=== PATIENT | male | born 1965 | race Caucasian/White ===

== ENCOUNTER → 2018-08-29 | Outpatient (CLI) | payer BC ==
--- NOTE | 2018-08-29 18:29 | MR ---
EXAMINATION TYPE: MR knee RT wo con DATE OF EXAM: 08/29/2018 COMPARISON: None HISTORY: RIGHT KNEE PAIN TECHNIQUE: Multiplanar, multisequence imaging of the right knee is performed without IV contrast. FINDINGS: MEDIAL MENISCUS: There is increased signal within the posterior meniscus extending towards the midpor tion. Milder increased signals within the anterior portion of the medial meniscus. Communication with an articular surface is not evident. Findings are compatible with internal derangement or degenerati ve change. LATERAL MENISCUS: Signal through the lateral meniscus appears normal CRUCIATE LIGAMENTS: The anterior and posterior cruciate ligaments are intact and unremarkable. COLLATERAL LIGAMENTS: Lateral collateral ligament appears intact. Medial collateral ligament has some increased signal adjacent. Some mild strain should be considered. EXTENSOR MECHANISM: Visualized quadriceps and patellar tendons are intact. EFFUSION: Small joint effusion is present. POPLITEAL CYST: No popliteal/neal cyst. TRICOMPARTMENT SPACES: Preserved CARTILAGE: Some minimal thinning of the medial femoral condylar articular cartilage may be present. BONE MARROW SIGNAL: No focal abnormal marrow signal is appreciated. OTHER: No additional significant abnormality is appreciated. IMPRESSION: 1. Internal derangement or degenerative change posterior horn medial meniscus to mild degree anterior horn medial meniscus. 2. Moderate joint effusion. 3. Suggestion of some mild medial collateral ligament strain. 4. Mild osteoarthritic degenerative change medial compartment right knee.
== END | disposition home or self-care (01) ==
LOC: RADMRIMAIN 13:09
PROVIDERS: ATTEND Orthopaedic Surgery
DX: M17.11 Unilateral primary osteoarthritis, right knee (principal)

== ENCOUNTER → 2022-01-04 | Outpatient (CLI) | payer BC ==
--- NOTE | 2022-01-04 19:03 | XR ---
EXAMINATION TYPE: XR KUB DATE OF EXAM: 01/04/2022 6:34 PM INDICATION: Patient age:Male; 56 years old; Reason for study: N20.0; pain COMPARISON: None. TECHNIQUE: One radiographic view of the abdomen was obtained. FINDINGS: Right renal density projecting over the renal sinus measuring 14 mm. The bowel gas pattern is nonspecific without dilated loops of small or large bowel. There is no evidence for organomegaly o r pneumoperitoneum. The osseous structures are intact. Fecal material and gas are demonstrated throu ghout the colon and rectum. IMPRESSION: 1. Calcific density projecting over the right kidney renal sinus measuring up to 14 mm which could r epresent a renal pelvis calculus.. 2. Nonspecific bowel gas pattern without radiographic evidence for acute process.
== END | disposition home or self-care (01) ==
LOC: RADXRMAIN 18:17
PROVIDERS: ATTEND Internal Medicine
DX: N28.89 Other specified disorders of kidney and ureter (principal)
CPT/HCPCS: 74018

== ENCOUNTER → 2022-01-24 | Outpatient (CLI) | payer BC ==
[2022-01-24 11:43] LABS: Basophils # (A) 0.1 k/uL (0-0.2); Basophils % (A) 1 %; Eosinophils # (A) 0.2 k/uL (0-0.7); Eosinophils % (A) 3 %; HCT 49.7 % (39.0-53.0); HGB 15.9 gm/dL (13.0-17.5); Lymphocytes % (A) 28 %; MCHC 31.9 g/dL (31.0-37.0); MCV 84.6 fL (80.0-100.0); Mean Platelet Volume 8.6; Monocytes # (A) 0.5 k/uL (0-1.0); Monocytes % (A) 7 %; Neutrophils # (A) 4.2 k/uL (1.3-7.7); Neutrophils % (A) 59 %; Platelet Count 284 k/uL (150-450); RBC 5.87 m/uL (4.30-5.90); RDW 13.1 % (11.5-15.5); WBC 7.1 k/uL (3.8-10.6)
[2022-01-24 11:51] LABS: African American GFR (CKD) 86 (>60 ml/min/1.73 sqM); Anion Gap 7 mmol/L; Blood Urea Nitrogen 13 mg/dL (9-20); Calcium 9.6 mg/dL (8.4-10.2); Carbon Dioxide 31 mmol/L (22-30); Chloride 101 mmol/L (98-107); Glucose 89 mg/dL (74-99); Non-African American GFR(CKD) 74 (>60 ml/min/1.73 sqM); Potassium 4.4 mmol/L (3.5-5.1); Sodium 139 mmol/L (137-145)
== END | disposition home or self-care (01) ==
LOC: LABPAT 10:25
PROVIDERS: ATTEND Urology
DX: Z01.812 Encounter for preprocedural laboratory examination (principal); N20.0 Calculus of kidney
CPT/HCPCS: 80048; 85025

== ENCOUNTER 2022-01-25 14:07 | Day surgery (SDC) | payer BC ==
[2022-01-24 11:11] VITALS: BMI 32.8
--- NOTE | 2022-01-24 14:55 | P.GSHP ---
History of Present Illness H&P Date: 01/24/22 Chief Complaint: Right renal colic The patient is a 56-year-old white male with no prior history of urolithiasis. For the past 2 months, he has experienced right flank pain radiating to the right groin. Computed tomography scan of the abdomen and pelvis reveals mild right hydronephrosis due to an 11 x 17 mm right renal pelvic calculus. The calculus is also seen on a plain radiograph. Had a lengthy discussion with the patient and his regarding alternative treatment options, which consist of extracorporal shockwave lithotripsy (ESWL), ureteroscopy with laser lithotripsy, and percutaneous nephrolithotomy. I have reviewed the pros, cons, and risks of each with him in detail. - Constitutional Constitutional: Denies chills, Denies fever - Gastrointestinal Gastrointestinal: Reports nausea - Genitourinary (Male) Genitourinary: Reports flank pain, Reports kidney stones, Denies dysuria, Denies hematuria Past Medical History Past Medical History: Hypertension Additional Past Medical History / Comment(s): KIDNEY STONE History of Any Multi-Drug Resistant Organisms: None Reported Past Surgical History: Appendectomy, Cholecystectomy Additional Past Surgical History / Comment(s): arthroscopy left knee, right foot surgery with hardware., colonoscopy. Past Anesthesia/Blood Transfusion Reactions: No Reported Reaction Past Psychological History: No Psychological Hx Reported Smoking Status: Former smoker Past Alcohol Use History: None Reported Additional Past Alcohol Use History / Comment(s): quit smoking approx 10 yrs ago, hx of 1ppd. Past Drug Use History: None Reported - Past Family History Mother Family Medical History: No Reported History Medications and Allergies Home Medications Medication Instructions Recorded Confirmed Type Tamsulosin HCl [Flomax] 0.4 mg PO HS 01/24/22 01/24/22 History lisinopriL 10 mg PO HS 01/24/22 01/24/22 History Allergies Allergy/AdvReac Type Severity Reaction Status Date / Time No Known Allergies Allergy Verified 01/24/22 10:56 Surgical - Exam - General well developed, well nourished, moderate distress - Neck no masses, trachea midline - Respiratory normal respiratory effort - Abdomen Abdomen: soft, non tender, no guarding, no rigid, no rebound - Genitourinary normal penis with no external lesions, testicles non-tender - Psychiatric oriented to time, oriented to person, oriented to place, speech is normal, memory intact Results - Imaging CT scan - abdomen: report reviewed, image reviewed Assessment and Plan (1) Calculus of kidney Status: Acute Code(s): N20.0 - CALCULUS OF KIDNEY SNOMED Code(s): 80525915 Plan: Cystoscopy, right ureteroscopy with Holmium laser lithotripsy and possible stone basketing, right ureteral stent insertion. The patient has been made aware of potential risks, which include anesthesia, bleeding, infection, and ureteral injury. He is aware of the possible need for secondary procedure.
[2022-01-25] MEDS ORDERED: LACTATED RINGERS 1,000 ML IV ONE ×2 (15:00→18:12)
[2022-01-25] MEDS ORDERED: LIDOCAINE 1% (10MG/ML) FOR IV START INTRADERMA ONE (15:00)
[2022-01-25] MEDS ORDERED: ONDANSETRON 4 MG/2 ML VIAL ONE (15:04)
[2022-01-25] MEDS ORDERED: DEXAMETHASONE SOD PHOSPHATE 4 MG/ML 1 ML VIAL IV ONE (15:05)
[2022-01-25 15:12] VITALS: RESP 16
[2022-01-25] MEDS ORDERED: LIDOCAINE 2% INJ 20 MG/ML (2 ML VIAL) ONE (16:40)
[2022-01-25] MEDS ORDERED: NEOSTIGMINE 1 MG/ML 10 ML VIAL ONE (16:40)
[2022-01-25] MEDS ORDERED: PROPOFOL 10 MG/ML 20 ML VIAL IV ONE (16:40)
[2022-01-25] MEDS ORDERED: SUCCINYLCHOLINE CHLORIDE VIAL 200 MG/10 ML VIAL IV ONE (16:40)
[2022-01-25] MEDS ORDERED: fentaNYL (PF) 50 MCG/ML 2 ML AMP ONE (16:40)
[2022-01-25] MEDS ORDERED: HYDROmorphone (PF) 1 MG/ML ONE (16:40)
[2022-01-25] MEDS ORDERED: ROCURONIUM 10 MG/ML (5 ML VIAL) IV ONE (16:40)
[2022-01-25] MEDS ORDERED: MIDAZOLAM 2 MG/2 ML VIAL ONE (16:40)
[2022-01-25] MEDS ORDERED: GLYCOPYRROLATE 0.2 MG/ML 2 ML VIAL ONE (16:40)
[2022-01-25 18:32] VITALS: TEMP 97.4
--- NOTE | 2022-01-25 18:45 | FL ---
Intraoperative fluoroscopic services were provided for right ureteral stent placement. Total fluorosc opy time is 24.9 seconds with a total of 1 Submitted images to PACS. Please see the operative note f or further details.
[2022-01-25 19:24] VITALS: BP 159/89; PULSE 64
--- NOTE | 2022-01-25 20:07 | P.OP ---
Date of Procedure: 01/25/22 Preoperative Diagnosis: Right renal calculus Postoperative Diagnosis: Same Procedure(s) Performed: Cystoscopy, right ureteroscopy with Holmium laser lithotripsy, right ureteral stent insertion Anesthesia: GETA Surgeon: Tolu Gaytan Estimated Blood Loss (ml): 10 IV fluids (ml): 500 Pathology: none sent Condition: stable Disposition: PACU Indications for Procedure: The patient is a 56-year-old white male with no prior history of urolithiasis. For the past 2 months, he has experienced right flank pain radiating to the right groin. CT scan of the abdomen and pelvis reveals mild right hydronephrosis due to an 11 x 17 mm right renal pelvic calculus. The calculus is also seen on a plain radiograph. Operative Findings: Impacted right UPJ calculus, fragmented. Description of Procedure: The patient was taken to the operating room and placed in the dorsolithotomy position, with legs supported in Mitchell stirrups. The external genitalia was prepped and draped sterilely. The 30 lens was used to introduce the 21-[place] Citizen Aguilar cystoscopic sheath through the urethra and into the bladder under direct vision. The prostatic urethra showed evidence of mild lateral lobe enlargement. The bladder was examined in its entirety. Both ureteral orifices were normal anatomic location and configuration, and clear urine effluxed from both. No tumors or foreign bodies were seen. A 0.038 inch Glidewire was passed through the cystoscope. The right ureteral orifice was cannulated, and the Glidewire was advanced up to the renal pelvis. The cystoscope was removed, and an 12/14- [place] Citizen ureteral access catheter was passed over the wire. However, resistance was met within the distal ureter and the catheter was removed. The 12-[place] Citizen obturator was passed over the wire and up to the proximal ureter. The flexible ureteroscope was then passed over the wire, up to the proximal ureter. The calculus was impacted at the ureteropelvic junction. The 272 micron Holmium laser probe was passed through the ureteroscope, and lithotripsy was performed. The perimeter of the calculus was soft, but the core was very dense. The calculus will ultimately fragmented very well, likely completely, but there was a significant snowstorm effect. Therefore, the decision was made to place a ureteral stent and terminate the procedure. A Glidewire was passed through the ureteroscope, which was withdrawn. There was no evidence of ureteral trauma. The Glidewire was backloaded into the cystoscope, which was passed into the bladder. A 26 cm, 6-[place] Cook silicone double-J ureteral stent was placed over the wire. Proper stent positioning was verified fluoroscopically and endoscopically. The bladder was emptied and the cystoscope removed. The patient tolerated the procedure well and was taken to the recovery room in stable condition. [facility] [place] Report: Procedure Acuity: Urgent Stone Size and Location: 17 mm, right renal pelvis Ureteral Dilation: Yes Ureteral Access Sheath Used: No Stone Sent for Analysis: No All Stones/Fragments Were Removed with a Basket: No Complications: No Preoperative Antibiotics Given: Yes Stent Placed: Yes If Stent Placed, Was String Left Attached: No If Stent Placed, When is it to be Removed: 2 weeks Discharge Medications: Tamsulosin, Toradol
== END 2022-01-25 19:40 | disposition home or self-care (01) ==
LOC: OR 14:07
PROVIDERS: ATTEND Urology
DX: N13.2 Hydronephrosis with renal and ureteral calculous obstruction (principal); I10 Essential (primary) hypertension; Z87.891 Personal history of nicotine dependence; Z90.49 Acquired absence of other specified parts of digestive tract
CPT/HCPCS: 52356; C1769; C1894; J2250; J0330; J1100; J2710; J0690; J2405; J3010; J1170; J2704; J2001

== ENCOUNTER 2022-02-22 12:06 | Day surgery (SDC) | payer BC ==
--- NOTE | 2022-02-21 22:32 | P.GSHP ---
History of Present Illness H&P Date: 02/21/22 Chief Complaint: Right flank pain The patient is a 56-year-old white male with no prior history of urolithiasis. He presents with a two-month history of right flank pain radiating to the right groin. Computed tomography scan shows mild right hydronephrosis due to an 11 x 17 mm right renal pelvic calculus. - Constitutional Constitutional: Denies chills, Denies fever - Gastrointestinal Gastrointestinal: Reports nausea, Reports vomiting - Genitourinary (Male) Genitourinary: Reports flank pain, Reports kidney stones, Denies dysuria, Denies hematuria Past Medical History Past Medical History: Hypertension Additional Past Medical History / Comment(s): kidney stones History of Any Multi-Drug Resistant Organisms: None Reported Past Surgical History: Appendectomy, Cholecystectomy, Orthopedic Surgery Additional Past Surgical History / Comment(s): arthroscopy left kne, right foot surg., colonoscopy, recent cystoscopy w/right ureteral stent insertion Past Anesthesia/Blood Transfusion Reactions: No Reported Reaction Smoking Status: Former smoker - Past Family History Mother Family Medical History: No Reported History Medications and Allergies Home Medications Medication Instructions Recorded Confirmed Type Tamsulosin HCl [Flomax] 0.4 mg PO HS 01/24/22 02/21/22 History lisinopriL 10 mg PO HS 01/24/22 02/21/22 History Allergies Allergy/AdvReac Type Severity Reaction Status Date / Time No Known Allergies Allergy Verified 02/21/22 10:28 Surgical - Exam - General well developed, well nourished, no distress - Neck no masses, trachea midline - Respiratory normal respiratory effort - Abdomen Abdomen: soft, non tender, no guarding, no rigid, no rebound - Genitourinary normal penis with no external lesions, testicles non-tender - Psychiatric oriented to time, oriented to person, oriented to place, speech is normal, memory intact Results - Imaging CT scan - abdomen: report reviewed, image reviewed Assessment and Plan (1) Calculus of kidney Status: Acute Code(s): N20.0 - CALCULUS OF KIDNEY SNOMED Code(s): 24290504 Plan: Alternative treatment options include extracorporal shockwave lithotripsy (ESWL), ureteroscopy with laser lithotripsy, and percutaneous nephrolithotomy (PCNL). Each procedure has been reviewed in detail with the patient, including the pros, cons, and potential risks associated with each. He has elected to undergo ureteroscopy with laser lithotripsy. He is aware of potential risks, wh ich include anesthesia, bleeding, infection, and ureteral injury. He is aware that a ureteral stent will be placed, and that a secondary procedure may be required.
[~2022-02-22 12:06] MED LIST: DEXAMETHASONE SOD PHOSPHATE 4 MG/ML 1 ML VIAL IV ONE; HYDROmorphone 0.5 MG/0.5 ML SYRINGE IVP PRN; LACTATED RINGERS 1,000 ML IV SCH; ONDANSETRON 4 MG/2 ML VIAL IVP ONE
--- NOTE | 2022-02-22 12:33 | XR ---
EXAMINATION TYPE: XR KUB DATE OF EXAM: 02/22/2022 12:17 PM CLINICAL HISTORY: Right-sided kidney stone. TECHNIQUE: Two supine KUB images of the abdomen are obtained. COMPARISON: Abdominal x-ray January 04, 2022. FINDINGS: There is new right double-J ureter stent. There is interval fragmentation of dominant 1.7 c m calculus into roughly 4-6 smaller right-sided renal calculi. Single right-sided pelvic phlebolith. No definite left-sided nephrolithiasis. Cholecystectomy clips redemonstrated. Overall nonobstructive bowel gas pattern. Visualized osseous st ructures are intact. IMPRESSION: As above.
[2022-02-22] MEDS ORDERED: PROPOFOL 10 MG/ML 20 ML VIAL IV ONE (16:48)
[2022-02-22] MEDS ORDERED: PHENYLEPHRINE-0.9% NACL SYG 1,000 MCG/10 ML SYRINGE ONE (16:48)
[2022-02-22] MEDS ORDERED: LIDOCAINE 2% INJ 20 MG/ML (2 ML VIAL) ONE (16:48)
[2022-02-22] MEDS ORDERED: MIDAZOLAM 2 MG/2 ML VIAL ONE (16:48)
[2022-02-22] MEDS ORDERED: fentaNYL (PF) 50 MCG/ML 2 ML AMP ONE (16:48)
[2022-02-22] MEDS ORDERED: GLYCOPYRROLATE 0.2 MG/ML 2 ML VIAL ONE (16:48)
[2022-02-22] MEDS ORDERED: SUCCINYLCHOLINE CHLORIDE 100 MG/5 ML SYR IV ONE (16:48)
[2022-02-22] MEDS ORDERED: NEOSTIGMINE 1 MG/ML 10 ML VIAL ONE (16:48)
[2022-02-22] MEDS ORDERED: ROCURONIUM 10 MG/ML (5 ML VIAL) IV ONE (16:48)
[2022-02-22] MEDS ORDERED: LACTATED RINGERS 1,000 ML IV ONE (17:37)
--- NOTE | 2022-02-22 18:16 | P.OP ---
Date of Procedure: 02/22/22 Preoperative Diagnosis: Right renal calculi Postoperative Diagnosis: Same Procedure(s) Performed: Cystoscopy, right ureteral stent removal, right ureteroscopy with Holmium laser lithotripsy Anesthesia: ERICHA Surgeon: Tolu Gaytan Estimated Blood Loss (ml): 0 IV fluids (ml): 800 Pathology: none sent Condition: stable Disposition: PACU Indications for Procedure: The patient is a 56-year-old white male with no prior history of urolithiasis. He presented with a two-month history of right flank pain radiating to the right groin. CT scan showed mild right hydronephrosis due to an 11 x 17 mm right renal pelvic calculus. He underwent right ureteroscopy with laser lithotripsy and stent insertion on 01/25/2022. He now comes for cystoscopy with right ureteral stent removal. Right ureteroscopy will be performed, and any residual calculus fragments will be removed via laser lithotripsy and/or stone basketing. Operative Findings: Several right renal calculi, fragmented completely. Description of Procedure: The patient was taken to the operating room and placed in the dorsolithotomy position, with legs supported in Mitchell stirrups. The external genitalia was prepped and draped sterilely. The 30 lens was used to introduce the 21-[place] Aguilar cystoscopic sheath through the urethra and into the bladder under direct vision. The prostatic urethra showed evidence of mild lateral lobe enlargement. The bladder was examined in its entirety. Both ureteral orifices were normal anatomic location and configuration, and clear urine effluxed from both. No tumors or foreign bodies were seen. The distal end of the right ureteral stent was grasped with grasping forceps and removed along with the cystoscope. A 0.038 inch Glidewire was passed through the stent and up to the right renal pelvis. The WTFastra flexible ureteroscope was passed over the wire, but resistance was met within the right distal ureter. A 12/14-[place]olan ureteral access catheter was passed over the wire. However, resistance was met within the distal ureter and the catheter was removed. The 12-[place] obturator was passed over the wire and up to the proximal ureter. The flexible ureteroscope was then passed over the wire, up to the proximal ureter. Each calyx was examined. Scattered small calculi were seen and were fragmented using the 200 holmium laser probe. Within a lower pole calyx was a calculus measuring approximately 3 x 5 mm, and this was fragmented completely. Lithotripsy was continued until there were no residual calculus fragments exceeding the size of the laser fiber tip. The ureteroscope was then slowly withdrawn under direct vision. Attention was paid in particular to the right distal ureter. There was no evidence of trauma, stricture, or ureteral calculi. The ureteroscope was removed. The patient tolerated the procedure well and was taken to the recovery room in stable condition. [facility] [place] Report: Procedure Acuity: Elective Stone Size and Location: 3x5 mm, right lower pole calyx Ureteral Dilation: Yes Ureteral Access Sheath Used: No Stone Sent for Analysis: No All Stones/Fragments Were Removed with a Basket: No Complications: No Preoperative Antibiotics Given: Yes Stent Placed: No Discharge Medications: Tamsulosin, Toradol
[2022-02-22 18:21] VITALS: TEMP 97.2
[2022-02-22 18:59] VITALS: BP 118/62; PULSE 60; RESP 18
--- NOTE | 2022-02-23 06:12 | FL ---
EXAMINATION TYPE: FL guidance operating room DATE OF EXAM: 02/22/2022 CLINICAL HISTORY: Right-sided kidney stone TECHNIQUE: Fluoroscopy. COMPARISON: None. FINDINGS: Fluoroscopic guidance was provided during right kidney stone treatment procedure performed by Dr. Gaytan. A total of 42 seconds of fluoroscopic time was utilized during the procedure and 1 s pot intraoperative image is acquired. IMPRESSION: As Above.
== END 2022-02-22 19:10 | disposition home or self-care (01) ==
LOC: OR 12:06
PROVIDERS: ATTEND Urology
DX: N20.0 Calculus of kidney (principal); I10 Essential (primary) hypertension; Z90.49 Acquired absence of other specified parts of digestive tract; Z79.899 Other long term (current) drug therapy; Z87.891 Personal history of nicotine dependence
CPT/HCPCS: 74018; 52353; C1769; C1894; J2250; J1100; J2710; J0690; J2405; J3010; J2370; J0330; J2704; J2001

== ENCOUNTER → 2022-06-21 | Outpatient (CLI) | payer BC ==
--- NOTE | 2022-06-21 16:58 | XR ---
EXAMINATION TYPE: XR KUB DATE OF EXAM: 06/21/2022 COMPARISON: 02/22/2022 INDICATION: Right-sided kidney stone pain right lower quadrant TECHNIQUE: Single view abdomen FINDINGS: Some nonspecific small bowel gas within the left mid abdomen. Psoas margins are normal. No organomegaly is present. Phlebolith is in the right hemipelvis, present previously. Punctate calcification is at the inferior pole right kidney. Previous larger calcifications are not e vident. Prior stent as been removed. IMPRESSION: 1. There may be residual punctate 0.5 cm calcification in the inferior pole right kidney. Additional previous renal stones are not evident at this time.
--- NOTE | 2022-06-21 17:00 | US ---
EXAMINATION TYPE: US renals and bladder DATE OF EXAM: 06/21/2022 COMPARISON: XR CLINICAL HISTORY: Elevated Cr. Calculus of kidney per order. Hx stones removed from right kidney. EXAM MEASUREMENTS: Right Kidney: 12.6 x 6.5 x 5.3 cm Left Kidney: 12.4 x 5.4 x 6.6 cm Right Kidney: Appears slightly enlarged. Two hyperechoic foci seen within the kidney. Larger area crystal sures 0.7 x 0.6 x 0.5 cm. Left Kidney: Appears slightly enlarged. Contour appears lobulated, possible normal variant, Dromedary hump versus hypoechoic area seen at mid: 2.3 x 2.2 x 2.1 cm. This appears isoechoic with the renal cortex. Bladder: Appears anechoic Bilateral Jets seen: Yes IMPRESSION: 1. Right renal stone without obstruction. 2. Dromedary hump left kidney. Underlying mass should be considered. Consider contrast CT for additio nal evaluation.
== END | disposition home or self-care (01) ==
LOC: RADUSWWP 11:02
PROVIDERS: ATTEND Urology
DX: N20.0 Calculus of kidney (principal)
CPT/HCPCS: 74018; 76770